=== PATIENT | female | born 1960 | race African-American/Black ===

== ENCOUNTER 2016-09-23 14:16 | Emergency (ER) | payer OTHER ==
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
[2016-09-23] MEDS ORDERED: OXYCODONE-ACETAMINOPHEN 5-325 MG TABLET PO ONE (16:43)
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
[2016-09-23 18:04] VITALS: BP 143/94
--- NOTE | 2016-09-24 09:45 | EKG REPORT ---
SEVERITY:- OTHERWISE NORMAL ECG - SINUS RHYTHM LEFT AXIS DEVIATION : Confirmed by: Gilberto Sheikh 24-Sep-2016 09:43:48
== END 2016-09-23 18:00 | disposition home or self-care (01) ==
LOC: ER 14:16
DX: R07.9 Chest pain, unspecified (principal); R52 Pain, unspecified; M54.2 Cervicalgia; M54.9 Dorsalgia, unspecified; V87.7XXA Person injured in collision between other specified motor vehicles (traffic), initial encounter
CPT/HCPCS: 71020; 72110; 72125; 93005; 93010; 99285

== ENCOUNTER → 2020-01-13 | Outpatient (CLI) | payer BC | LOC: RAD 14:11 | PROVIDERS: ATTEND Midwife | DX: Z12.31 Encounter for screening mammogram for malignant neoplasm of breast (principal) | CPT/HCPCS: 77063 ==